=== PATIENT | male | born 1950 | race Caucasian/White ===

== ENCOUNTER 2023-08-10 07:19 | Day surgery (SDC) | payer MEDICARE ==
[~2023-08-10] VITALS: Ht 177.8 cm; Wt 106.6 kg
[2023-08-10] MEDS ORDERED: TAMSULOSIN0.4 MG PO (07:41)
[2023-08-10] MEDS ORDERED: LOPRESSOR25 M1 PO (07:41)
[2023-08-10] MEDS ORDERED: FUROSEMIDE20 MG PO (07:42)
[2023-08-10] MEDS ORDERED: LISINOPRIL10 MG PO (07:42)
[2023-08-10] MEDS ORDERED: POT CHLORIDE10 ME5 PO (07:43)
[2023-08-10] MEDS ORDERED: DICYCLOMINE HYD10 MG PO (07:46)
[2023-08-10] MEDS ORDERED: OMEPRAZOLE DR40 MG PO (07:47)
[2023-08-10] MEDS ORDERED: FLEXERIL5 M1 PO (07:49)
[2023-08-10] MEDS ORDERED: GABAPENTIN400 M2 PO (07:49)
[2023-08-10] MEDS ORDERED: ABILIFY10 MG PO (07:50)
[2023-08-10] MEDS ORDERED: FISH OIL1000 M1 PO (07:51)
[2023-08-10] MEDS ORDERED: [UNRECOGNIZED DRUG - OTHER] (07:52)
[2023-08-10] MEDS ORDERED: VITAMIN C500 M6 PO (07:53)
[2023-08-10] MEDS ORDERED: ASPIRIN 81 LOW81 MG PO (07:53)
[2023-08-10 10:15] VITALS: BP 133/77
== END 2023-08-10 09:12 | disposition home or self-care (01) ==
LOC: ORM 07:19
PROVIDERS: ATTEND Student in an Organized Health Care Education/Training Program
DX: G89.4 Chronic pain syndrome (principal); M54.16 Radiculopathy, lumbar region; M48.062 Spinal stenosis, lumbar region with neurogenic claudication; M53.3 Sacrococcygeal disorders, not elsewhere classified; M70.62 Trochanteric bursitis, left hip; M79.2 Neuralgia and neuritis, unspecified; M47.816 Spondylosis without myelopathy or radiculopathy, lumbar region